=== PATIENT | female | born 1945 | race Caucasian/White ===

== ENCOUNTER 2017-01-18 18:59 | Emergency (ER) | payer OTHER, MEDICARE ==
[~2017-01-18] VITALS: Ht 152.4 cm; Wt 85.5 kg
[~2017-01-18 18:59] MED LIST: ALDACTONE50 MG PO; ALLERGY; BENTYL20 MG PO; CALCIUM-MAGNES1 EA10 PO; FLONASE16 G1 BOTH NARES; GLUCOPHAGE500 MG PO; HAIR, SKIN & N1 EAC1 PO; KLONOPIN0.5 M1 PO; LASIX20 MG PO; OCUVITE TABLET1 EACH PO; OSTEO BI-FLEX1 EAC1 PO; PRAVACHOL20 MG PO; PROTONIX40 MG PO; TEMOVATE 0.05%30 GM TP; WELLBUTRIN XL300 MG PO; ZESTORETIC 20-1 EAC1 PO
[2017-01-18 21:31] VITALS: BP 173/96
== END 2017-01-18 21:32 | disposition home or self-care (01) ==
LOC: EME 18:59
DX: K43.9 Ventral hernia without obstruction or gangrene (principal); I10 Essential (primary) hypertension; E78.5 Hyperlipidemia, unspecified; E11.9 Type 2 diabetes mellitus without complications; Z79.84 Long term (current) use of oral hypoglycemic drugs; Z90.710 Acquired absence of both cervix and uterus
CPT/HCPCS: 99281; 99285

== ENCOUNTER 2017-03-02 07:13 | Emergency (ER) | payer OTHER, MEDICARE ==
[~2017-03-02] VITALS: Ht 152.4 cm; Wt 86.4 kg
[2017-03-02 08:03] LABS: HEMATOCRIT 44.1 % (36.0-46.0); MCH 29.8 PG (29.0-34.0); MCHC 33.1 G/DL (30.0-36.0); MEAN PLAT.VOLUME 10.7 uM^3 (9.5-12.4); PLATELET COUNT 199 K/uL (156-360); RBC DIS.WIDTH-CV 13.6 % (11.8-14.6); RBC DIS.WIDTH-SD 45.2 % (39-53); WHITE BLOOD COUNT 13.9 K/uL (4.1-10.2)
[2017-03-02 08:13] LABS: CHLORIDE 104 mEq/L (99-109); POTASSIUM 4.1 mEq/L (3.7-5.4); SODIUM 139 mEq/L (136-147)
[2017-03-02 08:15] LABS: GLUCOSE 113 mg/dL (70-99)
[2017-03-02 08:16] LABS: ANION GAP 12 MEQ/L (2-14)
[2017-03-02 08:19] LABS: GFR ESTIMATE (CALCULATED) 52 mL/min/
[2017-03-02 08:20] LABS: UREA NITROGEN (BUN) 22 mg/dL (9-23)
[2017-03-02] MEDS ORDERED: KEFLEX500 MG PO (10:18)
[2017-03-02] MEDS ORDERED: MIRALAX17 GM PO (10:18)
[2017-03-02 10:33] VITALS: BP 151/91
== END 2017-03-02 10:35 | disposition home or self-care (01) ==
LOC: EME 07:13
PROVIDERS: Physician Assistant
DX: K59.00 Constipation, unspecified (principal); Z48.89 Encounter for other specified surgical aftercare; E11.9 Type 2 diabetes mellitus without complications; K21.9 Gastro-esophageal reflux disease without esophagitis; E78.5 Hyperlipidemia, unspecified; I10 Essential (primary) hypertension; Z79.84 Long term (current) use of oral hypoglycemic drugs
CPT/HCPCS: 74020; 80048; 85027; 99281; 99284